=== PATIENT | male | born 2000 | race Caucasian/White ===

== ENCOUNTER 2023-10-14 14:00 | Outpatient (REF) | payer SELFPAY ==
[2023-10-14 16:05] LABS: MANUAL DIFF FLAG NO
[2023-10-14 16:14] LABS: Basophils Percent Auto 0.5 % (0-2); Eosinophils Absolute Auto 0.1 X10*3/uL (0.0-0.4); Eosinophils Percent Auto 1.8 % (0-4); Hematocrit 44.6 % (42.0-52.0); Hemoglobin 15.7 g/dl (14.0-18.0); Imm Gran Abs Auto 0.03 X10*3/uL (0.00-0.03); Imm Gran Pct Auto 0.4 % (0.0-0.4); Lymphocytes Absolute Auto 2.6 X10*3/uL (1.2-4.9); Lymphocytes Percent Auto 32.3 % (20-40); Mean Corpuscular HGB Conc 35.2 g/dl (31.0-36.0); Mean Corpuscular Hemoglobin 29.3 pg (27.0-33.0); Mean Corpuscular Volume 83.2 fL (80.0-98.0); Mean Platelet Volume 10.6 fL (9.4-12.4); Monocytes Absolute Auto 0.6 X10*3/uL (0.1-1.2); Monocytes Percent Auto 7.9 % (2-11); Neutrophils Absolute Auto 4.5 x10*3/uL (2.0-8.3); Neutrophils Percent Auto 57.1 % (45-73); Platelet Count 297 X10*3/uL (160-400); Red Blood Count 5.36 X10*6/uL (4.60-5.80)
[2023-10-14 16:39] LABS: Estimated Average Glucose 151 mg/dL; Hemoglobin A1c % 6.9 % (<6.0)
[2023-10-14 16:41] LABS: Alanine Aminotransferase 187 U/L (0-40); Albumin Level 4.4 g/dL (3.5-5.0); Alkaline Phosphatase 109 U/L (39-117); Anion Gap 14 (12-20); Aspartate Amino Transferase 132 U/L (5-37); Bilirubin Total 0.4 mg/dL (0.0-1.0); Blood Urea Nitrogen 8 mg/dL (9-16); Calcium 9.8 mg/dL (8.4-10.2); Carbon Dioxide 23 mmol/L (22-29); Chloride 109 mmol/L (96-108); Cholesterol 244 mg/dL (<200); Estimated Glomerular Filt Rate > 60; Glucose Random 82 mg/dL (60-115); HDL Cholesterol 38 mg/dL (>40); LDL Cholesterol Calculated 147 mg/dL (<100); Potassium 3.9 mmol/L (3.3-5.1); Sodium 142 mmol/L (135-145); Triglycerides 297 mg/dL (<150)
[2023-10-14 16:59] LABS: TSH reflex Free T4 2.82 uIU/mL (0.32-4.0)
[2023-10-14 18:45] LABS: Reflex LDLD? No
[2023-10-15 04:41] LABS: HBS Num1 1.28 mIU/mL (0-7.99); HBc Num1 0.07 S/CO (0.00-0.79); HBsAGNum1 0.26 S/CO (0.00-0.99); HIV AB/AG Nonreactive (Nonreactive); HIV Num 1 0.05 S/CO (0.00-0.99); Hepatitis A Antibody IgM 0.19 Index (0-0.79); Hepatitis B Core Antibody Nonreactive (Nonreactive); Hepatitis B Surface Antigen Negative (Negative); ~HepC Num1 0.14 S/CO (0.00-0.79); ~Hepatitis A Antibody IgM Nonreactive (Nonreactive); ~Hepatitis B Surface Antibody NONREACTIVE (Nonreactive); ~Hepatitis C Antibody Nonreactive (Nonreactive)
[2023-10-17 09:44] LABS: RPR Rapid Plasma Reagin NON-REACTIVE (NON-REACTIVE)
== END 2023-10-14 14:01 | disposition home or self-care (01) ==
LOC: HO.HHCL 14:00
PROVIDERS: Visit Provider Internal Medicine
DX: Z00.00 Encounter for general adult medical examination without abnormal findings (principal); I10 Essential (primary) hypertension; Z13.1 Encounter for screening for diabetes mellitus
CPT/HCPCS: 36415; 80053; 80061; 83036; 84443; 85025; 86592; 86704; 86706; 86709; 86803; 87340; 87389

== ENCOUNTER 2023-10-27 09:28 | Outpatient (AMB) | payer MEDICAID, SELFPAY ==
--- NOTE | 2023-10-27 09:56 | A.OFFVIS_ITS ---
Vital Signs 3 10/27/23 10:00 Height 6 ft 2 in Weight 303 lb BMI 38.9 BP 151/71 H Blood Pressure Location Lt brachial Position Sitting Pulse 85 Intake Visit Reasons: Lipoma of scalp Intake Note: Patient is seen in office for evaluation and treatment of a lipoma of the scalp. Pt c/o:behind the right ear and another above the head, onset for yrs, minimal increase, denies redness, discharge, infection, no prior removal Procurement Accountant Required: Yes Procurement Accountant Language: K 9 Police Officer Services: Procurement Accountant Offered & Declined Procurement Accountant Name: Karen MERINO Information Interpreted: non-clinical & clinical Shot Peen Operator: Shot Peen Operator Present Accompanied by: Spouse Allergies No Known Allergies Allergy (Verified 10/27/23 09:58) Medication List - Last Reconciled 10/27/23 by Diloln Ellison MD alcohol swabs (Alcohol Prep Pads) pad topical BID blood pressure test kit-large As directed blood sugar diagnostic (FreeStyle Lite Strips) As directed blood-glucose meter (FreeStyle [place] Lite kit) As directed hydrochlorothiazide 25 mg PO DAILY lancets (TRUEplus Lancets) As directed metformin 500 mg PO BID HPI Comments Details: 23-year-old male patient presenting for evaluation of 2 lesions of the scalp which are causing discomfort and he is requesting excision. The largest lesion is located in the posterior right scalp measuring approximately 2 cm in diameter. This has been increased in size over the last several months. A 2nd lesion is located more in the frontoparietal region. He denies any skin redness, bleeding or discharge. He denies a previous history of similar lesions or surgery of the scalp. He denies a history of head trauma. [facility] Medical History (Updated 10/27/23 @ 15:56 by Dillon Ellison MD) Hypertension Diabetes mellitus type 2 in nonobese Social History Alcohol intake: never Patient Tobacco Use Status: Never used Tobacco Review of Systems Const All systems reviewed & are unremarkable except as noted in HPI and below Denies chills, Denies fever(s), Denies headache(s), Denies poor appetite and Denies weakness ENT Denies headache(s) Card Denies chest pain, Denies irregular heart rhythm, Denies palpitations and Denies dyspnea Resp Denies cough, Denies excessive phlegm production and Denies dyspnea GI Denies abdominal pain, Denies bloating, Denies change in bowel habits, Denies constipation, Denies heartburn, Denies diarrhea, Denies nausea and Denies vomiting Denies difficulty urinating and Denies urinary frequency Musc Denies back pain, Denies muscle weakness and Denies numbness Skin/Breast Denies changing lesions and Denies unusual bruising Neuro Denies headache(s), Denies numbness, Denies paresthesias and Denies weakness Psych Denies anxiety and Denies depression Endo Denies palpitations Andrew/Lymph Denies lymphadenopathy Physical Exam Vital Signs: Last Vital Signs Pulse 85 10/27/23 10:00 BP 151/71 H 10/27/23 10:00 BMI result Body Mass Index 38.9 Const General: cooperative and no acute distress Nutritional Appearance: well nourished Orientation/consciousness: patient oriented x3 Limitations: no limitations HEENT Head: Yes normocephalic and Yes atraumatic Head images: 2 1. 2.5 cm soft tissue mass consistent with a lipoma located just behind the right ear. 2. 1.5 cm mobile Pilar cyst, nontender to palpation. Ears: hearing grossly normal bilaterally Resp Effort & Inspection: normal respiratory effort, no audible wheezes, no cough and no respiratory distress Cardio Jugular venous distension: no JVD GI Inspection: Yes normal to inspection Skin Other: Warm, dry, no rash Neuro General: patient oriented x3 Extrem General: Yes no clubbing, cyanosis or edema Assessment & Plan Assessment & Plan (1) Pilar cyst of scalp: Code(s): L72.11 - Pilar cyst Category: Medical (2) Lipoma of scalp: Code(s): D17.0 - Benign lipomatous neoplasm of skin and subcutaneous tissue of head, face and neck Category: Medical Plan 23-year-old male patient presenting with 2 lesions of the scalp including a 2.5 cm soft tissue mass just behind the right ear suggestive of a lipoma and a 2nd lesion measuring 1.5 cm in the frontoparietal scalp on the right side, most consistent with a Pilar cyst. Patient has requested excision of both lesions. I have suggested excision under local anesthesia as a minor surgery. After discussion of the procedure, risks, and alternatives, he consents to the surgery. Coding Level of Care Code New Pt Level 4 (36850) Diagnoses Pilar cyst of scalp L72.11 Lipoma of scalp D17.0
[2023-10-27 10:00] VITALS: BP 151/71; PULSE 85; BMI 38.9
== END 2023-10-27 10:10 | disposition home or self-care (01) ==
PROVIDERS: Referring Provider Internal Medicine; Visit Provider Surgery
DX: L72.11 Pilar cyst (principal); D17.0 Benign lipomatous neoplasm of skin and subcutaneous tissue of head, face and neck
CPT/HCPCS: 99204

== ENCOUNTER → 2023-10-27 09:28 | Outpatient (BNVA) | payer MEDICAID, SELFPAY | PROVIDERS: Referring Provider Internal Medicine; Visit Provider Surgery | DX: D17.0 Benign lipomatous neoplasm of skin and subcutaneous tissue of head, face and neck (principal); L72.11 Pilar cyst | CPT/HCPCS: 99202 ==

== ENCOUNTER 2023-11-02 21:55 | Emergency (ER) | payer MEDICAID, SELFPAY ==
[2023-11-02 21:57] VITALS: BP 155/103; PULSE 103; RESP 20; TEMP 36.6; O2SAT 97; BMI 38.9
[2023-11-02 22:15] LABS: MANUAL DIFF FLAG NO
[2023-11-02 22:18] LABS: Basophils Percent Auto 0.4 % (0-2); Eosinophils Absolute Auto 0.1 X10*3/uL (0.0-0.4); Eosinophils Percent Auto 1.2 % (0-4); Hematocrit 43.8 % (42.0-52.0); Hemoglobin 15.3 g/dl (14.0-18.0); Imm Gran Abs Auto 0.02 X10*3/uL (0.00-0.03); Imm Gran Pct Auto 0.2 % (0.0-0.4); Lymphocytes Absolute Auto 2.1 X10*3/uL (1.2-4.9); Lymphocytes Percent Auto 21.8 % (20-40); Mean Corpuscular HGB Conc 34.9 g/dl (31.0-36.0); Mean Platelet Volume 9.9 fL (9.4-12.4); Monocytes Absolute Auto 0.7 X10*3/uL (0.1-1.2); Monocytes Percent Auto 7.5 % (2-11); Neutrophils Absolute Auto 6.6 x10*3/uL (2.0-8.3); Neutrophils Percent Auto 68.9 % (45-73); Platelet Count 296 X10*3/uL (160-400); Red Blood Count 5.28 X10*6/uL (4.60-5.80); Red Cell Distribution Width 13.2 % (11.0-16.0); White Blood Count 9.5 X10*3/uL (4.8-10.8)
[2023-11-02 22:31] LABS: Alanine Aminotransferase 174 U/L (0-40); Albumin Level 4.5 g/dL (3.5-5.0); Alkaline Phosphatase 106 U/L (39-117); Anion Gap 14 (12-20); Aspartate Amino Transferase 109 U/L (5-37); Bilirubin Total 0.4 mg/dL (0.0-1.0); Blood Urea Nitrogen 9 mg/dL (9-16); Calcium 9.6 mg/dL (8.4-10.2); Carbon Dioxide 25 mmol/L (22-29); Chloride 108 mmol/L (96-108); Creatinine Clr Calc Pharmacy 198.3; Estimated Glomerular Filt Rate > 60; Glucose Random 112 mg/dL (60-115); Potassium 3.8 mmol/L (3.3-5.1); Sodium 143 mmol/L (135-145); Total Protein 7.8 g/dL (6.5-8.0)
[2023-11-02 22:54] LABS: Influenza A PCR NEGATIVE (Negative); Influenza B PCR NEGATIVE (Negative); Resp Syncy Virus RNA Qual PCR NEGATIVE (Negative); SARS COV2 PCR INHOUSE NEGATIVE (Negative)
[2023-11-03] VITALS: BP 148/98; PULSE 98; RESP 20; TEMP 36.6; O2SAT 97
== END 2023-11-03 01:49 | disposition left against medical advice (07) ==
PROVIDERS: Emergency Provider Emergency Medicine
DX: R50.9 Fever, unspecified (principal); R11.2 Nausea with vomiting, unspecified; R19.7 Diarrhea, unspecified; Z03.818 Encounter for observation for suspected exposure to other biological agents ruled out; Z53.21 Procedure and treatment not carried out due to patient leaving prior to being seen by health care provider
CPT/HCPCS: 0241U; 80053; 85025; 99281; 99284

== ENCOUNTER 2023-11-29 13:28 | Outpatient (REF) | payer MEDICAID, SELFPAY ==
[2023-11-29 14:18] VITALS: BP 149/80; PULSE 100; RESP 18; TEMP 36.4; O2SAT 99; BMI 38.9
--- NOTE | 2023-11-29 15:22 | W.PM.OPN ---
Operative Note Operative Note Date of Service: 11/29/23 Narrative: Preoperative diagnosis: Lipoma posterior right neck, Pilar cyst right scalp Postoperative diagnosis: Lipoma right neck, lipoma right scalp Procedure: Excision of lipoma right neck and right scalp Surgeon: Dillon Ellison MD Double End Production Grinder: None Anesthesia: Local Indications for procedure: 23-year-old male patient presenting with a soft tissue mass at both the right posterior neck measuring approximately 2 cm in diameter and in the right scalp measuring approximately 1 cm in diameter. Operative findings: Lipoma measuring 2 cm posterior right neck, lipoma scalp 0.5 cm Specimen: Lipoma right neck and scalp right Estimated blood loss: Less than 2 mL Complications: None Procedure details: Patient was brought to the minor surgery suite and placed in a sitting position. The site of surgery was confirmed by the patient in the right scalp posteriorly and right neck. After assuring informed consent, the skin was prepped with Betadine and draped in a sterile fashion. Local anesthesia was then infiltrated beginning in the right posterior neck. A transverse incision was then made with a scalpel and carried out through subcutaneous tissue. A soft tissue mass consistent with a lipoma was identified and brought out through the incision. This was passed off the table and sent to pathology for further examination. Light pressure was held to maintain hemostasis. Skin was then closed using interrupted 4-0 Prolene sutures. Attention was then directed to the scalp were again incision was made in a transverse fashion over the palpable lump. This was carried out through subcutaneous tissue. No Pilar cyst could be identified although a lipoma was identified. This was excised and sent to pathology for further examination. Skin was then closed using interrupted 4-0 Prolene sutures. Bacitracin was then applied to the scalpel wound. A Tegaderm dressing was applied to the posterior neck wound. The patient tolerated the procedure well. He was discharged to home in stable condition.
== END 2023-11-29 13:29 | disposition home or self-care (01) ==
LOC: HO.MS 13:28
PROVIDERS: Visit Provider Surgery
PROC: (CPT 11423; principal; 2023-11-29 14:30)
DX: D17.0 Benign lipomatous neoplasm of skin and subcutaneous tissue of head, face and neck (principal); L72.11 Pilar cyst
CPT/HCPCS: 11423; 88304

== ENCOUNTER → 2023-11-29 13:28 | Outpatient (BNV) | payer MEDICAID, SELFPAY | PROVIDERS: Visit Provider Surgery | DX: D17.0 Benign lipomatous neoplasm of skin and subcutaneous tissue of head, face and neck (principal); L72.11 Pilar cyst | CPT/HCPCS: 11420; 21555 ==

== ENCOUNTER 2023-12-09 11:22 | Outpatient (AMB) | payer MEDICAID, SELFPAY ==
--- NOTE | 2023-12-09 11:40 | MHC.OFFVIS ---
Vital Signs 12/09/23 11:45 Height 6 ft 2 in Weight 302 lb 0.533 oz BMI 38.8 Respiration 18 Pulse 98 Intake Visit Reasons: S/P Rt. scalp lipoma & pilar cyst Intake Note: Patient is seen in office for post op assessment post excision of Lipoma right neck & right scalp. Pt c/o: no concerns healing as expected surgery:11/29/23 Tax Senior Associate Required: Yes Tax Senior Associate Language: As[employer] Head Services: Tax Senior Associate Present Tax Senior Associate Name: Karen WILBER Information Interpreted: non-clinical & clinical Accompanied by: Family/Other Allergies No Known Allergies Allergy (Verified 12/09/23 11:45) Medication List - Last Reconciled 12/13/23 by Dillon Ellison MD alcohol swabs (Alcohol Prep Pads) pad topical BID blood pressure test kit-large As directed blood sugar diagnostic (FreeStyle Lite Strips) As directed blood-glucose meter (FreeStyle [place] Lite kit) As directed hydrochlorothiazide 25 mg PO DAILY lancets (TRUEplus Lancets) As directed metformin 500 mg PO BID HPI Comments Details: 23-year-old male patient presenting with 2 lesions of the scalp which were causing discomfort. He subsequently underwent excision of the 2 lesions as a minor surgery 1 week ago. He tolerated the procedure well and returns today for suture removal. Pathology confirmed lipomas at both lesions. He denies any bleeding or discharge from his incisions. [facility] [place] Medical History Hypertension Diabetes mellitus type 2 in nonobese Surgical History Hx of removal of cyst (11/29/23) Social History Alcohol intake: never Patient Tobacco Use Status: Never used Tobacco Physical Exam Vital Signs: Last Vital Signs Pulse 98 12/09/23 11:45 Resp 18 12/09/23 11:45 BMI result Body Mass Index 38.8 HEENT Other: Excision site in the right scalp as noted below is clean, dry, and intact. Head images: 1. 2. Assessment & Plan Assessment & Plan (1) Lipoma of scalp: Code(s): D17.0 - Benign lipomatous neoplasm of skin and subcutaneous tissue of head, face and neck Category: Medical Plan Patient returns 1 week following excision of 2 lipomas of the scalp. He tolerated the procedure well and his wounds are healing nicely. He should follow up as needed. Coding Level of Care Code Global (62558) Diagnoses Lipoma of scalp D17.0
[2023-12-09 11:45] VITALS: PULSE 98; RESP 18; BMI 38.8
== END 2023-12-09 11:50 | disposition home or self-care (01) ==
PROVIDERS: Visit Provider Surgery
DX: D17.0 Benign lipomatous neoplasm of skin and subcutaneous tissue of head, face and neck (principal)
CPT/HCPCS: 99024

== ENCOUNTER → 2023-12-09 11:22 | Outpatient (BNVA) | payer MEDICAID, SELFPAY | PROVIDERS: Visit Provider Surgery | DX: Z48.817 Encounter for surgical aftercare following surgery on the skin and subcutaneous tissue (principal); Z87.2 Personal history of diseases of the skin and subcutaneous tissue; Z98.890 Other specified postprocedural states | CPT/HCPCS: 99212 ==